=== PATIENT | female | born 1985 ===

== ENCOUNTER 2018-01-19 08:06 | Inpatient (IN) ==
[2018-01-19] MEDS ORDERED: Naloxone Inj 0.4 MG/ML Vial ONE (08:19)
[2018-01-19] MEDS ORDERED: Naloxone Inj 2 MG/2 ML Vial IV.PUSH ONE (08:24)
[2018-01-19 08:38] LABS: Baso % (Auto) 0.2 % (0.0-2.0); Eos # (Auto) 0.1 th/mm3 (0.0-0.4); Eos % (Auto) 0.5 % (0.0-4.0); Hematocrit 38.4 % (35.0-46.0); Hemoglobin 12.7 gm/dL (11.6-15.3); Lymph # (Auto) 2.1 th/mm3 (1.0-4.8); Lymph % (Auto) 10.7 % (9.0-44.0); Mean Corpuscular HGB Conc 33.2 % (32.0-36.0); Mean Corpuscular Hemoglobin 30.7 pg (27.0-34.0); Mean Corpuscular Volume 92.6 fL (80.0-100.0); Mean Platelet Volume 8.3 fL (7.0-11.0); Mono # (Auto) 1.3 th/mm3 (0.0-0.9); Mono % (Auto) 6.6 % (0.0-8.0); Neut # (Auto) 16.2 th/mm3 (1.8-7.7); Platelet Count 276 th/mm3 (150-450); Red Blood Count 4.15 mil/mm3 (4.00-5.30); Red Cell Distribution Width 13.8 % (11.6-17.2); White Blood Count 19.8 th/mm3 (4.0-11.0)
[2018-01-19 08:58] LABS: Anion Gap 9 meq/L (5-15); Aspartate Aminotransferase 69 U/L (15-37); Blood Urea Nitrogen 10 mg/dL (7-18); Carbon Dioxide 26.2 meq/L (21.0-32.0); Chloride 103 meq/L (98-107); Glomerular Filtration Rate 59 mL/min (>89); Glucose,Random 116 mg/dL (74-106); Potassium 3.4 meq/L (3.5-5.1); Sodium 138 meq/L (136-145)
[2018-01-19 09:03] LABS: Alanine Aminotransferase 54 U/L (10-53); Alkaline Phosphatase 63 U/L (45-117); Total Protein 8.6 g/dL (6.4-8.2)
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
--- NOTE | 2018-01-19 09:34 | XR ---
EXAM DATE: 01/19/2018 9:22 AM EDT AGE/SEX: 89 years / Female INDICATIONS: Palpitations. CLINICAL DATA: This is the patient's initial encounter. Patient reports that signs and symptoms have been present for 1 day and indicates a pain score of Nonresponsive. MEDICAL/SURGICAL HISTORY: Non-responsive. Non-responsive. COMPARISON: No prior exams available for comparison. FINDINGS: A single AP view of the chest demonstrates the lungs to be symmetrically aerated without evidence of mass, infiltrate or effusion. The cardiomediastinal contours are unremarkable. Osseous structures a re intact. CONCLUSION: No acute cardiopulmonary disease. Electronically signed by: Nuno Miller MD 01/19/2018 9:33 AM EDT
--- NOTE | 2018-01-19 10:15 | CT ---
EXAM DATE: 01/19/2018 9:54 AM EDT AGE/SEX: 89 years / Female INDICATIONS: Altered mental status CLINICAL DATA: This is the patient's initial encounter. Patient reports that signs and symptoms have been present for 1 day and indicates a pain score of Nonresponsive. MEDICAL/SURGICAL HISTORY: Non-responsive. Non-responsive. RADIATION DOSE: 35.33 CTDI (mGy) COMPARISON: No prior exams available for comparison. TECHNIQUE: CT of the head without contrast. Using automated exposure control and adjustment of the mA and/or kV according to patient size, radiation dose was kept as low as reasonably achievable to ob tain optimal diagnostic quality images. DICOM format image data is available electronically for revi ew and comparison. FINDINGS: Cerebrum: The ventricles are normal. No midline shift, mass lesion, or acute infarction. There is a punctate 5 mm area of high density in the medial right temporal lobe and questionable high density l ayering along the sulci in the right frontal high and mid convexity. No extraaxial fluid collections are seen. Posterior Fossa: The cerebellum and brainstem demonstrate no acute abnormality. The 4th ventricle is midline. The cerebellopontine angle is within normal limits. Extracranial: The visualized sinuses are clear. There is left scalp soft tissue swelling and subcuta neous edema. Skull: The calvaria is intact. No skull fracture. CONCLUSION: 1. Left scalp soft tissue swelling and subcutaneous edema. No skull fracture is identified. 2. 5 mm high density focus in the medial right temporal lobe likely representing a focal area of blo od products, possibly a small hemorrhagic contusion. There are questionable subtle subarachnoid blood products layering along the right frontal sulci. . Electronically signed by: Wayne Zamora MD 01/19/2018 10:14 AM EDT
[2018-01-19] MEDS ORDERED: Piperacil/Tazo 3.375 GM Premix 50 ML IV.SIG ONE (11:31)
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
[2018-01-19] MEDS ORDERED: HYDROmorphone PF Inj 0.5 MG/0.5 ML Syringe IV.PUSH PRN (14:00)
[2018-01-19] MEDS: Sod Chloride 0.9% Inj 1,000 ML IV.CONT SCH (14:57)
[2018-01-19] MEDS: Multivitamin Inj 10 ML, Thiamine Inj 100 MG, Folic Acid Inj 1 MG in Sodium Chlor 0.9% I... IV.SIG SCH (14:58)
[2018-01-19] MEDS: Pantoprazole Inj 40 MG Vial IV.PUSH SCH (14:58)
[2018-01-19 15:49] LABS: Bacteria,Urine Occasional /hpf; Bilirubin,Urine Negative (Negative); Clarity,Urine Hazy (Clear); Color,Urine Yellow (Yellw/Straw); Glucose,Urine (UA) Negative (Negative); Leukocyte Esterase,Urine Trace (Negative); Mucus,Urine Few /lpf (Occasional); Nitrite,Urine Negative (Negative); Specific Gravity,Urine 1.025 (1.002-1.035); Squamous Epithelial Cell,Urine 4 /hpf (0-5)
[2018-01-19 15:52] LABS: Amphetamine Screen,Urine Neg (Neg); Barbiturate Screen,Urine Neg (Neg); Cannabinoid Screen,Urine Pos (Neg); Cocaine Screen,Urine Pos (Neg)
[2018-01-19 15:56] LABS: Opiate Screen,Urine Neg (Neg)
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
--- NOTE | 2018-01-19 17:09 | ECG ---
Date Performed: 01/19/2018 Time Performed: 08:35:32 PTAGE: 89 years EKG: Sinus rhythm NORMAL ECG NO PREVIOUS TRACING DOCTOR: Dewey López Interpretating Date/Time 01/19/2018 17:08:01
[2018-01-19] MEDS: Docusate Sodium 100 MG Capsule PO SCH (20:59)
--- NOTE | 2018-01-19 21:20 | MG ---
cc: Tyler Avila MD ELECTROENCEPHALOGRAM RECORD NUMBER: [id number] DESCRIPTION: Generalized slowing, but appears delta activity has been most suggestive of stage II sleep with mild easy variability reactivity during arousals. Limited driving with photic stimulation. Single lead EKG showing sinus rhythm. INTERPRETATION: Moderate generalized slowing suggestive of stage II sleep. Possible underlying encephalopathy. No epileptic activity. Clinical correlation. Tyler Avila MD MG/rw , 09:04 PM , 09:09 PM
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
[2018-01-20] MEDS: Sod Chloride 0.9% Inj 1,000 ML IV.CONT SCH ×3 (01:00→21:02)
[2018-01-20] MEDS: Chlorhexidine Gluconate 2% 1 Pack (2 Cloths) TOPICAL SCH (04:00)
[2018-01-20] MEDS ORDERED: Chlorhexidine Gluconate 2% 1 Pack (2 Cloths) TOPICAL PRN (04:00)
[2018-01-20 04:43] LABS: Baso # (Auto) 0.1 th/mm3 (0.0-0.2); Baso % (Auto) 0.5 % (0.0-2.0); Eos % (Auto) 0.2 % (0.0-4.0); Hematocrit 34.3 % (35.0-46.0); Hemoglobin 11.7 gm/dL (11.6-15.3); Lymph # (Auto) 2.9 th/mm3 (1.0-4.8); Lymph % (Auto) 20.9 % (9.0-44.0); Mean Corpuscular Hemoglobin 30.8 pg (27.0-34.0); Mean Corpuscular Volume 90.6 fL (80.0-100.0); Mean Platelet Volume 8.2 fL (7.0-11.0); Mono # (Auto) 1.3 th/mm3 (0.0-0.9); Mono % (Auto) 9.4 % (0.0-8.0); Neut # (Auto) 9.4 th/mm3 (1.8-7.7); Platelet Count 256 th/mm3 (150-450); Red Blood Count 3.79 mil/mm3 (4.00-5.30); Red Cell Distribution Width 13.6 % (11.6-17.2); White Blood Count 13.7 th/mm3 (4.0-11.0)
[2018-01-20 05:07] LABS: Alanine Aminotransferase 37 U/L (10-53); Albumin 3.2 g/dL (3.4-5.0); Anion Gap 6 meq/L (5-15); Aspartate Aminotransferase 45 U/L (15-37); Blood Urea Nitrogen 6 mg/dL (7-18); Calcium 8.3 mg/dL (8.5-10.1); Carbon Dioxide 27.4 meq/L (21.0-32.0); Chloride 109 meq/L (98-107); Glomerular Filtration Rate 61 mL/min (>89); Glucose,Random 93 mg/dL (74-106); Potassium 3.6 meq/L (3.5-5.1); Sodium 142 meq/L (136-145)
[2018-01-20 05:11] LABS: Alkaline Phosphatase 51 U/L (45-117); Total Protein 7.5 g/dL (6.4-8.2)
[2018-01-20] MEDS: Docusate Sodium 100 MG Capsule PO SCH ×2 (09:22→21:02)
--- NOTE | 2018-01-20 10:13 | P.PNNS ---
Subjective Interval history: Pt opens eyes and reportedly was talking to speech therapy but not verbalizing for me. She does answer questions by nodding head appropriately. She denies headaches, nausea, vomiting, numbness. She has a very flat affect and is somnolent. <Lance Gustafson - Last Filed: 01/20/18 10:03> Physical Exam Vital signs: Vital Signs 01/19/18 10:21 01/19/18 11:00 01/19/18 12:00 Temperature Pulse Rate 88 86 94 H Respiratory Rate 18 18 18 Blood Pressure 122/73 119/73 119/71 Pulse Oximetry 100 99 01/19/18 14:00 01/19/18 16:00 01/19/18 18:00 Temperature 100.5 F H Pulse Rate 90 86 88 Respiratory Rate 18 25 H Blood Pressure 124/71 114/69 Pulse Oximetry 100 01/19/18 20:00 01/19/18 22:00 01/19/18 23:33 Temperature 99.8 F H Pulse Rate 79 81 Respiratory Rate 20 Blood Pressure 122/70 Pulse Oximetry 100 100 01/20/18 00:00 01/20/18 02:00 01/20/18 04:00 Temperature 99.8 F H 98.2 F Pulse Rate 79 75 75 Respiratory Rate 20 18 Blood Pressure 116/76 120/80 Pulse Oximetry 100 100 01/20/18 06:00 01/20/18 07:44 01/20/18 08:00 Temperature 98.1 F Pulse Rate 70 70 Respiratory Rate 18 Blood Pressure 114/79 Pulse Oximetry 99 100 Intake & Output 01/19/18 01/20/18 01/20/18 18:59 06:59 18:59 Intake Total 50 / 50 1511.2 / 1511.2 0 / 0 Balance 50 / 50 1511.2 / 1511.2 0 / 0 Weight 54.8 kg 52.1 kg Intake: IV 50 / 50 1511.2 / 1511.2 NS Inj 1,000 ML @ 100 mls/hr IV 1000 / 1000 .CONT .Q10H [facility] Rx#:[id number] MVI-12 Inj 10 ML Thiamine Inj 511.2 / 511.2 100 MG Folvite Inj 1 MG In NS Inj 500 ML @ 125 mls/hr IV.SIG Q24H [facility] Rx#:[id number] Zosyn 3.375 GM Premix 50 ML @ 50 / 50 100 mls/hr IV.SIG ONCE ONE Rx#: [id number] Oral 0 / 0 0 / 0 Other: # Voids 1 4 # Bowel Movements 0 0 Weight On Admission 54.8 kg - Constitutional no acute distress, average body habitus, somnolent Comments: Somewhat cooperative for exam. She is not verbalizing although reportedly was talking to speech therapy earlier. Otherwise follows commands and nods head to questions. - Routine HEENT Exam Head: Present: normocephalic, atraumatic Eye: Present: PERRL (Pupils 3mm bialterally reactive bilaterally.). Absent: conjunctival icterus ENT: Present: oropharynx clear. Absent: mucous membranes dry - Routine Neck Exam Present: trachea midline - Routine Respiratory Exam Present: CTA bilaterally. Absent: patient mechanically ventilated, respiratory distress, rhonchi, wheezes - Routine Cardiovascular Exam Present: RRR, S1, S2. Absent: murmur - Routine Abdominal Exam Present: soft, normoactive bowel sounds. Absent: tenderness, distended, firm - Routine Skin Exam Absent: cyanosis, erythema - Routine Neurological Exam Present: altered mental status, moving all extremities. Absent: alert ( somnolent.), motor deficit, abnormal gait (RN states ambulates to bathroom with assistance.), normal speech (Pt not verbalizing for me but reportely was talking to speech therapy.) - Detailed Neurological Exam: Coma Scale Eye Opening: Spontaneous Verbal Response: Words (Reportedly taling to speech therapy.) Motor Response: Obey commands Manjinder Coma Scale Total: 13 - Routine Psychiatric Exam Present: unable to assess (Not verbalizing for me but reportedly is able to do so.) <Lance Gustafson - Last Filed: 01/20/18 10:03> Vital signs: Vital Signs 01/19/18 14:00 01/19/18 16:00 01/19/18 18:00 Temperature 100.5 F H Pulse Rate 90 86 88 Respiratory Rate 18 25 H Blood Pressure 124/71 114/69 Pulse Oximetry 100 01/19/18 20:00 01/19/18 22:00 01/19/18 23:33 Temperature 99.8 F H Pulse Rate 79 81 Respiratory Rate 20 Blood Pressure 122/70 Pulse Oximetry 100 100 01/20/18 00:00 01/20/18 02:00 01/20/18 04:00 Temperature 99.8 F H 98.2 F Pulse Rate 79 75 75 Respiratory Rate 20 18 Blood Pressure 116/76 120/80 Pulse Oximetry 100 100 01/20/18 06:00 01/20/18 07:44 01/20/18 08:00 Temperature 98.1 F Pulse Rate 70 70 Respiratory Rate 18 Blood Pressure 114/79 Pulse Oximetry 99 100 01/20/18 10:00 01/20/18 12:00 01/20/18 12:37 Temperature 99.2 F Pulse Rate 69 70 69 Respiratory Rate 18 Blood Pressure 113/76 Pulse Oximetry 100 Intake & Output 01/19/18 01/20/18 01/20/18 18:59 06:59 18:59 Intake Total 50 / 50 1511.2 / 1511.2 0 / 0 Balance 50 / 50 1511.2 / 1511.2 0 / 0 Weight 54.8 kg 52.1 kg Intake: IV 50 / 50 1511.2 / 1511.2 NS Inj 1,000 ML @ 100 mls/hr IV 1000 / 1000 .CONT .Q10H [facility] Rx#:[id number] MVI-12 Inj 10 ML Thiamine Inj 511.2 / 511.2 100 MG Folvite Inj 1 MG In NS Inj 500 ML @ 125 mls/hr IV.SIG Q24H [facility] Rx#:[id number] Zosyn 3.375 GM Premix 50 ML @ 50 / 50 100 mls/hr IV.SIG ONCE ONE Rx#: [id number] Oral 0 / 0 0 / 0 Other: # Voids 1 4 # Bowel Movements 0 0 Weight On Admission 54.8 kg <Virgilio Caruso - Last Filed: 01/20/18 12:51> Assessment and Plan - Assessment (1) Altered mental status Code(s): R41.82 - Altered mental status, unspecified Status: Acute (2) Subarachnoid hemorrhage Code(s): I60.9 - Nontraumatic subarachnoid hemorrhage, unspecified Status: Acute (3) Sepsis Code(s): A41.9 - Sepsis, unspecified organism Status: Acute - Plan CT head: -left frontal/temporal scalp hematoma without underlying skull fracture -Small areas of right frontal tSAH -5 mm small nodule of hyperintensity within the right caudal cerebral peduncle ( differential includes small contusion from JUSTINE, incidental finding) A/P: [age]ish yo F found down with small areas of traumatic SAH and possible punctate hemorrhage within the right caudal cerebral peduncle. -No surgical intervention indicated. Continue with Neuro checks. -Patients current state not explained by current CT head findings, recommend further medical workup of AMS including infectious (WBC 20), utox, etc. -Recommend stat EEG to rule out seizures -Recommend MR brain to further evaluate right peduncle hyperdensity (including SWI to evaluate for hematoma) <Lance Gustafson - Last Filed: 01/20/18 10:03> - Attending Attestation The exam, history, and the medical decision-making described in the above note were completed with the assistance of the mid-level provider. I reviewed and agree with the findings presented. I attest that I had a [id number] encounter with the patient on the same day, and personally performed and documented my assessment and findings in the medical record. <Virgilio Caruso - Last Filed: 01/20/18 12:51>
--- NOTE | 2018-01-20 11:27 | P.NPEVAL ---
Patient History - Record/History Review Reason for Referral: The patient is a 89 year old unknown handed female who was dropped off at the ED by a stranger who found the patient lying on the ground with mental status deterioration. Head CT showed possible small area of hemorrhagic contusion. Her tox screen was significant for cocaine and THC. She is referred for baseline neurobehavioral status examination per trauma protocol to assess cognitive, behavioral and emotional aspects of the injury and to provide treatment recommendations. PMFSH - History History Provided By: Patient - Tobacco History Second Hand Smoke Exposure: (pt will not answer) Smoking Status: Refused to answer - Alcohol History How Often Do You Have a Drink Containing Alcohol: Unable to Obtain - Substance Use History Substance History: Active Abuse - Travel History Recent Travel in the [place] Within the Last 8 Weeks: No Recent Travel Out of the Country Within the Last 8 Weeks: No - Immunization History Tetanus Immunization: Unable to Assess Hx Influenza Vaccine This Season: Unable to Assess Medications Active Medications Bacitracin (Baciguent Oint) 1 applicatio TOPICAL BID [facility] Last Admin: 01/20/18 09:27 Dose: Not Given Chlorhexidine Gluconate (Chlorhexidine 2% Cloth) 3 pack TOPICAL DAILY@0400 [facility] Stop: 01/25/18 03:59 Last Admin: 01/20/18 04:00 Dose: 3 pack Chlorhexidine Gluconate (Chlorhexidine 2% Cloth) 3 pack TOPICAL DAILY@0400 PRN PRN Reason: Extra cloth needed Stop: 01/25/18 03:59 Docusate Sodium (Colace) 100 mg PO BID [facility] Last Admin: 01/20/18 09:22 Dose: Not Given Enalaprilat (Vasotec Inj) 1.25 mg IV.PUSH Q8H PRN PRN Reason: Blood pressure 180/95 Sodium Chloride (Ns Inj) 1,000 mls @ 100 mls/hr IV.CONT .Q10H [facility] Last Admin: 01/20/18 01:00 Dose: 100 mls/hr Multivitamins 10 ml/ Thiamine HCl 100 mg/ Folic Acid 1 mg/Sodium Chloride 511.2 mls @ 125 mls/hr IV.SIG Q24H [facility] Stop: 01/21/18 19:06 Last Infusion: 01/19/18 19:04 Dose: Infused Acetaminophen (Ofirmev Inj) 1,000 mg in 100 mls @ 400 mls/hr IV.SIG Q6H PRN PRN Reason: PAIN SCALE 1 TO 10 Ondansetron HCl (Zofran Inj) 4 mg IV.PUSH Q6H PRN PRN Reason: NAUSEA OR VOMITING Pantoprazole Sodium (Protonix Inj) 40 mg IV.PUSH Q24H [facility] Last Admin: 01/19/18 14:58 Dose: 40 mg Sodium Chloride (Ns Flush) 2 ml IV.FLUSH PRN PRN PRN Reason: FLUSH AFTER USING IV ACCESS Last Admin: 01/19/18 08:29 Dose: 2 ml Sodium Chloride (Ns Flush) 2 ml IV.FLUSH UNSCH PRN PRN Reason: FLUSH AFTER USING IV ACCESS Mental Status Assessment - Mental Status Orientation: oriented to: Self, disoriented to: Place, Time, Situation Mental Status: Variable: Language/interactions, Impaired: Thought processing, Attention, Learning/memory, Problem-solving Adjustment/Coping Assessment - Adjustment/Coping Adjustment/Coping: Severe: Awareness, Insight - Observation In terms of emotional functioning, the patient demonstrated challenges. This patient demonstrated no signs of agitation, impulsivity or disinhibition, although she was quite lethargic. There was no evidence of depression or anxiety. Thought content appeared free from suicidal, homicidal or paranoid ideation, and thought processes were bradyphrenic. The patients mood was apathetic, and her affect was flat. The patient appears to possess minimal insight and awareness into their situation and within the limits of this brief evaluation, poor judgment. Behavior - Behavior Treatment Engagement: Minimal - Observation Behaviorally, the patient demonstrated no signs of agitation, impulsivity or disinhibition. However, she is mildly agitated with ABS scores recently. There was no remarkable evidence of a formal thought disorder or psychosis. - Goals LTG Status: Deferred STG Status: Deferred - Team Members Team Members: Neuropsychologist Diagnosis/Discharge Plan - Diagnosis (1) Altered mental status Status: Acute Impression: This patient is a 31ish year old woman who was found down. Her CT findings are minimal and inconsistent with her clinical presentation, possibly better explained by polysubstance use/dependence and withdrawal. I asked for my psychiatry colleagues to provide an opinion concerning clinical presentation and course of treatment. Disinhibition Score: 21.00 Aggression Score: 21.00 Lability Score: 14.00 Agitated Behavior Total Score: 19 Maximizing Acute Care Outcome: It is recommended that the patient be monitored for emergent behavioral impulsivity as the medical condition evolves. This patients neuropathological challenges may limit rehabilitation potential going forward, and these challenges will require specialized therapeutic skills to maximize outcome. At this point in the recovery process, the patient does not have cognitive capacity as the patient is unable to understand a situation and its likely consequences, nor is the patient able to manipulate information rationally. Cognitive capacity will be assessed throughout the recovery process. - Discharge Planning Anticipated Problems: Ongoing areas of concern will include behavioral impulsivity, lack of insight and judgment, which is expected to improve with time and treatment. Treatment Plan: This clinician will continue to follow with you throughout the course of this patients rehabilitation treatment, and I will be available to meet with the patients family/support system to facilitate their understanding and the ongoing care of their family member. The goals of neuropsychological intervention shall be both educational and supportive to the family/support system as is deemed clinically appropriate. Thank you for the opportunity to assist in this patients care. Franklin Mcarthur, Ph.D., ABPP Board Certified in Clinical Neuropsychology [place] [employer] [place] Licensed Psychologist #[id number] (1) Altered mental status Qualifiers: Altered mental status type: transient alteration of awareness Qualified Code( s): R40.4 - Transient alteration of awareness
[2018-01-20] MEDS: Pantoprazole Inj 40 MG Vial IV.PUSH SCH (15:25)
--- NOTE | 2018-01-20 15:29 | P.CONPSY ---
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 The patient was noted denae be outside a convenient store and was brought in to the emergency department due to immobility, found down, left-sided scalp contusion, not following commands. The patient is combative, occasionally refusing to participate with any answering of questions or with the physical exam. The patient is noted to be moving all extremities. She is noted to be hemodynamically stable. She did have a CT scan showing small subarachnoid hemorrhage and she is noted to have positive cocaine. WBC 19.8, hemoglobin 12.7 , hematocrit 38.4, platelets 276. Sodium 138, potassium 3.4, chloride 103, BUN 10, creatinine 0.8, AST 69, ALT 54, albumin 4. Urine: Positive THC, positive cocaine. CT reviewed showing left scalp soft tissue swelling, 5 mm high density focus medial right temporal lobe foci of blood, concerning for small hemorrhagic contusion, questionable subarachnoid along the right. Consulted to psychiatry to address behavioral changes. Collateral information is available at this moment. Chart was reviewed. On my psychiatric evaluation I find a patient that is restrained in 4 points, very lethargic, no engaging in a conversation unable to provide any significant information for the psychiatric assessment at the moment. She has been witnessed to be talking before, but at this moment the patient is not answering questions PMFSH - History History Provided By: Patient - Tobacco History Second Hand Smoke Exposure: (pt will not answer) Smoking Status: Refused to answer - Alcohol History How Often Do You Have a Drink Containing Alcohol: Unable to Obtain - Substance Use History Substance History: Active Abuse - Travel History Recent Travel in the [place] Within the Last 8 Weeks: No Recent Travel Out of the Country Within the Last 8 Weeks: No - Immunization History Tetanus Immunization: Unable to Assess Hx Influenza Vaccine This Season: Unable to Assess Medications and Allergies Active Medications: Active Medications Bacitracin (Baciguent Oint) 1 applicatio TOPICAL BID [facility] Last Admin: 01/20/18 09:27 Dose: Not Given Chlorhexidine Gluconate (Chlorhexidine 2% Cloth) 3 pack TOPICAL DAILY@0400 [facility] Stop: 01/25/18 03:59 Last Admin: 01/20/18 04:00 Dose: 3 pack Chlorhexidine Gluconate (Chlorhexidine 2% Cloth) 3 pack TOPICAL DAILY@0400 PRN PRN Reason: Extra cloth needed Stop: 01/25/18 03:59 Docusate Sodium (Colace) 100 mg PO BID [facility] Last Admin: 01/20/18 09:22 Dose: Not Given Enalaprilat (Vasotec Inj) 1.25 mg IV.PUSH Q8H PRN PRN Reason: Blood pressure 180/95 Sodium Chloride (Ns Inj) 1,000 mls @ 100 mls/hr IV.CONT .Q10H [facility] Last Admin: 01/20/18 15:18 Dose: 100 mls/hr Multivitamins 10 ml/ Thiamine HCl 100 mg/ Folic Acid 1 mg/Sodium Chloride 511.2 mls @ 125 mls/hr IV.SIG Q24H [facility] Stop: 01/21/18 19:06 Last Infusion: 01/19/18 19:04 Dose: Infused Acetaminophen (Ofirmev Inj) 1,000 mg in 100 mls @ 400 mls/hr IV.SIG Q6H PRN PRN Reason: PAIN SCALE 1 TO 10 Ondansetron HCl (Zofran Inj) 4 mg IV.PUSH Q6H PRN PRN Reason: NAUSEA OR VOMITING Pantoprazole Sodium (Protonix Inj) 40 mg IV.PUSH Q24H [facility] Last Admin: 01/19/18 14:58 Dose: 40 mg Sodium Chloride (Ns Flush) 2 ml IV.FLUSH PRN PRN PRN Reason: FLUSH AFTER USING IV ACCESS Last Admin: 01/19/18 08:29 Dose: 2 ml Sodium Chloride (Ns Flush) 2 ml IV.FLUSH UNSCH PRN PRN Reason: FLUSH AFTER USING IV ACCESS Allergies Allergy/AdvReac Type Severity Reaction Status Date / Time No Known Allergies Allergy Unverified 01/19/18 08:13 Home Medications Medication Instructions Recorded Confirmed Type Unable to Obtain Home Meds 01/19/18 01/19/18 History Exam Vital signs: Vital Signs 01/19/18 16:00 01/19/18 18:00 01/19/18 20:00 Temperature 100.5 F H 99.8 F H Pulse Rate 86 88 79 Respiratory Rate 25 H 20 Blood Pressure 114/69 122/70 Pulse Oximetry 100 100 01/19/18 22:00 01/19/18 23:33 01/20/18 00:00 Temperature 99.8 F H Pulse Rate 81 79 Respiratory Rate 20 Blood Pressure 116/76 Pulse Oximetry 100 100 01/20/18 02:00 01/20/18 04:00 01/20/18 06:00 Temperature 98.2 F Pulse Rate 75 75 70 Respiratory Rate 18 Blood Pressure 120/80 Pulse Oximetry 100 01/20/18 07:44 01/20/18 08:00 01/20/18 10:00 Temperature 98.1 F Pulse Rate 70 69 Respiratory Rate 18 Blood Pressure 114/79 Pulse Oximetry 99 100 01/20/18 12:00 01/20/18 12:37 Temperature 99.2 F Pulse Rate 70 69 Respiratory Rate 18 Blood Pressure 113/76 Pulse Oximetry 100 Intake & Output 01/19/18 01/20/18 01/20/18 18:59 06:59 18:59 Intake Total 50 / 50 1511.2 / 1511.2 1000 / 1000 Balance 50 / 50 1511.2 / 1511.2 1000 / 1000 Weight 54.8 kg 52.1 kg Intake: IV 50 / 50 1511.2 / 1511.2 1000 / 1000 NS Inj 1,000 ML @ 100 mls/hr IV 1000 / 1000 1000 / 1000 .CONT .Q10H [facility] Rx#:[id number] MVI-12 Inj 10 ML Thiamine Inj 511.2 / 511.2 100 MG Folvite Inj 1 MG In NS Inj 500 ML @ 125 mls/hr IV.SIG Q24H [facility] Rx#:[id number] Zosyn 3.375 GM Premix 50 ML @ 50 / 50 100 mls/hr IV.SIG ONCE ONE Rx#: [id number] Oral 0 / 0 0 / 0 Other: # Voids 1 4 # Bowel Movements 0 0 Weight On Admission 54.8 kg Mental Status Examination Mental Status Exam Remarks: Limited due to lack of cooperation, the patient is not answering questions. Assessment and Plan - Plan Plan: Estimated LOS: [] days On psychiatric evaluation the patient is lethargic, no answering questions, no engageable in a conversation, unable to participate in the psychiatric assessment. She has been allegedly agitated and aggressive in the medical floor. She is restrained in 4 points. Patient was positive for cocaine and cannabis. CT reviewed showing left scalp soft tissue swelling, 5 mm high density focus medial right temporal lobe foci of blood, concerning for small hemorrhagic contusion, questionable subarachnoid along the right. Current presentation could be related with AMS post TBI, but potential underlying psychiatric condition also needs to be explored. No psychiatric admission is indicated. Haldol 5 mg IM/IV every 8 hours as needed aggressive behavior and agitation can be ordered. A low dose of Seroquel 25/50 mg twice daily can also be considered for behavioral dysregulation. QTc is 408. I will follow-up Justification for Continued Inpatient Stay: No admission indicated at the moment.
--- NOTE | 2018-01-20 16:46 | MR ---
EXAM DATE: 01/20/2018 4:35 PM EDT AGE/SEX: 32 years / Female INDICATIONS: . Lethargic after trauma. CLINICAL DATA: This is the patient's subsequent encounter. Patient reports that signs and symptoms h ave been present for 1 day and indicates a pain score of 0/10. MEDICAL/SURGICAL HISTORY: None. None. COMPARISON: No prior exams available for comparison. TECHNIQUE: Multiplanar, multisequence examination of the brain was performed without contrast. FINDINGS: There are multiple areas of punctate bright signal on diffusion imaging corresponding to restricted d iffusion capacity in a setting of trauma most likely shear axonal injury. There are also punctate are as of involvement involving the right basal ganglia and anterior portion of the midbrain and jonatan. Th ere are additional areas of bright signal on the FLAIR sequence in the frontal lobes bilaterally high ly suggestive of slight subarachnoid hemorrhage with partial involvement of the right parietal lobe a nd posterior temporal lobes. Additional areas are also seen involving the occipital lobes bilateral c erebellar hemispheres some of these areas could be punctate intraparenchymal contusions as well. Ther e is no mass effect. No extra-axial fluid collections are seen. Scalp swelling and hematoma is again seen. CONCLUSION: 1. Multiple areas of subarachnoid hemorrhage and punctate intraparenchymal contusions bilaterally an d possibility of additional shear axonal injury should also be entertained. 2. No extra-axial fluid collections or mass effect. Electronically signed by: Karthik Cortes MD 01/20/2018 4:45 PM EDT
[2018-01-20] MEDS: Multivitamin Inj 10 ML, Thiamine Inj 100 MG, Folic Acid Inj 1 MG in Sodium Chlor 0.9% I... IV.SIG SCH (17:00)
--- NOTE | 2018-01-20 18:35 | P.PNCC ---
Subjective Brief History: 32-year-old female found on the ground outside a store with a large bump on her head and laceration. She was brought into the emergency room as regular evaluation and diagnostic workup found to have intracranial hemorrhage for which she is admitted to ICU. On arrival patient was combative screaming and yelling but not answering any questions clearly intoxicated or with altered mental status this could be attributed to either combination of injury and outside drugs or alcohol Patient underwent full diagnostic workup and is found to have intracranial hemorrhage on the CAT scan and this is followed with MRI of the brain Subarachnoid and intraparenchymal hemorrhage of both frontal lobes and both temporal lobes Punctate intraparenchymal hemorrhage of basal ganglia and the interior jonatan Diffuse shear axonal injuries 24 Hour Review/Hospital Course: 01/20/2018 Patient has been neurologically same since the arrival She is arousable and when awake somewhat somnolent answering simple questions appropriately and then falling asleep Able to eat her lunch today by herself Refuses to answer any questions other than her name and the adverse and does not remember any events surrounding her injury Patient was positive for substances [place] [facility] Coma Scale around 11-12 and when patient is fully awake about 13-14 Motorically fully intact no lateralization Hemodynamically patient is stable Bilateral good breath sounds good pulmonary function and patient might have aspirated and seen both within know that yet If any pulmonary infiltrates occur it will be next 24-48 hours Abdomen soft no signs of trauma Extremities with good proximal distal pulses no signs of trauma Renal function preserved As above noted MRI reveals full extent of her injuries which does not include only frontal and parietal areas but also the basal ganglia and jonatan Objective Vital Signs / I&O: Vital Signs 01/19/18 20:00 01/19/18 22:00 01/19/18 23:33 Temperature 99.8 F H Pulse Rate 79 81 Respiratory Rate 20 Blood Pressure 122/70 Pulse Oximetry 100 100 01/20/18 00:00 01/20/18 02:00 01/20/18 04:00 Temperature 99.8 F H 98.2 F Pulse Rate 79 75 75 Respiratory Rate 20 18 Blood Pressure 116/76 120/80 Pulse Oximetry 100 100 01/20/18 06:00 01/20/18 07:44 01/20/18 08:00 Temperature 98.1 F Pulse Rate 70 70 Respiratory Rate 18 Blood Pressure 114/79 Pulse Oximetry 99 100 01/20/18 10:00 01/20/18 12:00 01/20/18 12:37 Temperature 99.2 F Pulse Rate 69 70 69 Respiratory Rate 18 Blood Pressure 113/76 Pulse Oximetry 100 Intake & Output 01/19/18 01/20/18 01/20/18 18:59 06:59 18:59 Intake Total 50 / 50 1511.2 / 1511.2 1000 / 1000 Balance 50 / 50 1511.2 / 1511.2 1000 / 1000 Weight 54.8 kg 52.1 kg Intake: IV 50 / 50 1511.2 / 1511.2 1000 / 1000 NS Inj 1,000 ML @ 100 mls/hr IV 1000 / 1000 1000 / 1000 .CONT .Q10H K[facility]IE Rx#:[id number] MVI-12 Inj 10 ML Thiamine Inj 511.2 / 511.2 100 MG Folvite Inj 1 MG In NS Inj 500 ML @ 125 mls/hr IV.SIG Q24H KALLIE Rx#:[id number] Zosyn 3.375 GM Premix 50 ML @ 50 / 50 100 mls/hr IV.SIG ONCE ONE Rx#: [id number] Oral 0 / 0 0 / 0 Other: # Voids 1 4 # Bowel Movements 0 0 Weight On Admission 54.8 kg Result Diagrams: 01/20/18 04:24 01/20/18 04:24 Imaging: Impressions Head MRI 01/20/18 00:00 CONCLUSION: 1. Multiple areas of subarachnoid hemorrhage and punctate intraparenchymal contusions bilaterally and possibility of additional shear axonal injury should also be entertained. 2. No extra-axial fluid collections or mass effect. Disinhibition Score: 21.00 Aggression Score: 21.00 Lability Score: 14.00 Agitated Behavior Total Score: 19 - Exam TEAM LEAD: Patient has been neurologically same since the arrival She is arousable and when awake somewhat somnolent answering simple questions appropriately and then falling asleep Able to eat her lunch today by herself Refuses to answer any questions other than her name and the adverse and does not remember any events surrounding her injury Patient was positive for substances [facility] Coma Scale around 11-12 and when patient is fully awake about 13-14 Motorically fully intact no lateralization As above noted MRI reveals full extent of her injuries which does not include only frontal and parietal areas but also the basal ganglia and jonatan Hemodynamic/Cardiac: Hemodynamically patient is stable Pulmonary/Respiratory: Bilateral good breath sounds good pulmonary function and patient might have aspirated and seen both within know that yet If any pulmonary infiltrates occur it will be next 24-48 hours Abdomen/GI Nutrition: Abdomen soft no signs of trauma Renal/I&O: Extremities with good proximal distal pulses no signs of trauma Renal function preserved Assessment and Plan Attestation: Critical care time 32 minutes
[2018-01-20] MEDS ORDERED: Morphine Sulfate Inj 2 MG/ML Vial ONE (22:07)
[2018-01-21] MEDS: Chlorhexidine Gluconate 2% 1 Pack (2 Cloths) TOPICAL SCH (05:00)
[2018-01-21] MEDS: Sod Chloride 0.9% Inj 1,000 ML IV.CONT SCH (05:01)
[2018-01-21 05:37] LABS: Baso # (Auto) 0.1 th/mm3 (0.0-0.2); Baso % (Auto) 0.4 % (0.0-2.0); Eos # (Auto) 0.1 th/mm3 (0.0-0.4); Eos % (Auto) 0.9 % (0.0-4.0); Hematocrit 35.7 % (35.0-46.0); Hemoglobin 11.8 gm/dL (11.6-15.3); Lymph # (Auto) 3.6 th/mm3 (1.0-4.8); Lymph % (Auto) 29.9 % (9.0-44.0); Mean Corpuscular HGB Conc 33.2 % (32.0-36.0); Mean Corpuscular Hemoglobin 30.5 pg (27.0-34.0); Mean Platelet Volume 8.7 fL (7.0-11.0); Mono # (Auto) 0.9 th/mm3 (0.0-0.9); Mono % (Auto) 7.7 % (0.0-8.0); Neut # (Auto) 7.4 th/mm3 (1.8-7.7); Neut % (Auto) 61.1 % (16.0-70.0); Platelet Count 261 th/mm3 (150-450); Red Blood Count 3.88 mil/mm3 (4.00-5.30); Red Cell Distribution Width 13.8 % (11.6-17.2); White Blood Count 12.1 th/mm3 (4.0-11.0)
[2018-01-21 05:59] LABS: Anion Gap 10 meq/L (5-15); Blood Urea Nitrogen 8 mg/dL (7-18); Calcium 8.5 mg/dL (8.5-10.1); Carbon Dioxide 24.2 meq/L (21.0-32.0); Chloride 108 meq/L (98-107); Glomerular Filtration Rate Greater Than 89 mL/min (>89); Glucose,Random 85 mg/dL (74-106); Potassium 3.6 meq/L (3.5-5.1); Sodium 142 meq/L (136-145)
[2018-01-21] MEDS: Docusate Sodium 100 MG Capsule PO SCH (08:14)
--- NOTE | 2018-01-21 08:14 | P.PNNPSY ---
- Behavior Intact: Impulsive/agitated - Psychosocial Severe: Psychosocial, Family/other adjustment, Realistic expectation - Progress Notes/Response to Treatment Contents of Sessions: Adjustment, Level of consciousness Time with Patient: 30 minutes Premorbid Psychological Status: Premorbid Cognitive, Emotional and Behavioral Status: Unstable. The patient has unknown years of education and an unknown work history prior to this injury. The patient has unknown psychiatric difficulties, as described above. Substance abuse history includes THC and cocaine. Behavioral Reactions of Patient and Family/Support System: Unstable. The patients family is experiencing ongoing issues of adjustment given the nature of the injury, and this aspect of recovery will require ongoing monitoring. Emotional/Behavioral Status of Patient and Family/Support System: Unstable. Pertinent issues, if appropriate to this patients clinical care, are described in detail above. Maximizing Acute Care Outcome: It is recommended that the patient be monitored for emergent behavioral impulsivity as the medical condition evolves. This patients neuropathological challenges may limit rehabilitation potential going forward, and these challenges will require specialized therapeutic skills to maximize outcome. At this point in the recovery process, the patient does not have cognitive capacity as the patient is unable to understand a situation and its likely consequences, nor is the patient able to manipulate information rationally. Cognitive capacity will be assessed throughout the recovery process. Anticipated Problems: Ongoing areas of concern will include behavioral impulsivity, lack of insight and judgment, which is expected to improve with time and treatment. Treatment Plan: This clinician will continue to follow with you throughout the course of this patients rehabilitation treatment, and I will be available to meet with the patients family/support system to facilitate their understanding and the ongoing care of their family member. The goals of neuropsychological intervention shall be both educational and supportive to the family/support system as is deemed clinically appropriate. [place] COG Scale: Level V Disinhibition Score: 17.50 Aggression Score: 14.00 Lability Score: 14.00 Agitated Behavior Total Score: 16 Impression: This patient is a 31ish year old woman who was found down. Her CT findings are minimal and inconsistent with her clinical presentation, possibly better explained by polysubstance use/dependence and withdrawal. I asked for my psychiatry colleagues to provide an opinion concerning clinical presentation and course of treatment. Progress Note Narrative: PTD 2. The patient has not been significantly agitated/restless overnight, although remains in restraints. Psychiatry saw patient yesterday, and very appreciative of Dr. Corona's input. Recommended medications if agitation presents, including Haldol 5 mg q8H or Seroquel 25 or 50 BID., and trauma team started Seroquel 50 TID given presentation, with PRN Haldol. This patient is Rancho V, possibly higher, although she has not been entirely cooperative. I was asked to return to see patient later in the morning, and she was demanding and wanting to leave, becoming increasingly agitated, having pulled her IV. The patient's mother is being contacted to accept patient. The patient continues to show diminished insight, awareness and judgment. Follow-up brain MRI showed "Multiple areas of subarachnoid hemorrhage and punctate intraparenchymal contusions bilaterally and possibility of additional shear axonal injury should also be entertained." I will follow. - Diagnosis (1) Altered mental status Status: Acute (1) Altered mental status Qualifiers: Altered mental status type: transient alteration of awareness Qualified Code( s): R40.4 - Transient alteration of awareness
[2018-01-21] MEDS ORDERED: Haloperidol Inj 5 MG/ML Ampul IV.PUSH PRN (10:20)
[2018-01-21] MEDS ORDERED: QUEtiapine 25 MG Tablet PO SCH (10:30)
--- NOTE | 2018-01-21 12:19 | P.PNCC ---
Subjective Brief History: 32-year-old female found on the ground outside a store with a large bump on her head and laceration. She was brought into the emergency room as regular evaluation and diagnostic workup found to have intracranial hemorrhage for which she is admitted to ICU. On arrival patient was combative screaming and yelling but not answering any questions clearly intoxicated or with altered mental status this could be attributed to either combination of injury and outside drugs or alcohol Patient underwent full diagnostic workup and is found to have intracranial hemorrhage on the CAT scan and this is followed with MRI of the brain Subarachnoid and intraparenchymal hemorrhage of both frontal lobes and both temporal lobes Punctate intraparenchymal hemorrhage of basal ganglia and the interior jonatan Diffuse shear axonal injuries 24 Hour Review/Hospital Course: 01/20/2018 Patient has been neurologically same since the arrival She is arousable and when awake somewhat somnolent answering simple questions appropriately and then falling asleep Able to eat her lunch today by herself Refuses to answer any questions other than her name and the adverse and does not remember any events surrounding her injury Patient was positive for substances Manjinder Coma Scale around 11-12 and when patient is fully awake about 13-14 Motorically fully intact no lateralization Hemodynamically patient is stable Bilateral good breath sounds good pulmonary function and patient might have aspirated and seen both within know that yet If any pulmonary infiltrates occur it will be next 24-48 hours Abdomen soft no signs of trauma Extremities with good proximal distal pulses no signs of trauma Renal function preserved As above noted MRI reveals full extent of her injuries which does not include only frontal and parietal areas but also the basal ganglia and jonatan 01/21/2018 Patient is awake and alert oriented 3 Motorically fully intact MRI shows fairly extensive diffuse injuries throughout the brain mainly in frontal and temporoparietal areas but also some of the base of the brain in the form of her shear injury. Patient extremely belligerent to the staff cussing and threatening Hemodynamically stable Bilateral good breath sounds good pulmonary function Out of bed regular diet Patient awaiting floor bed for the last 24 hours Objective Vital Signs / I&O: Vital Signs 01/20/18 12:37 01/20/18 16:00 01/20/18 16:37 Temperature 97.4 F L Pulse Rate 69 66 80 Respiratory Rate 19 Blood Pressure 106/59 L Pulse Oximetry 100 01/20/18 20:00 01/20/18 20:01 01/21/18 00:00 Temperature 99.6 F 98.8 F Pulse Rate 97 H 69 Respiratory Rate 12 23 Blood Pressure 111/73 111/73 Pulse Oximetry 100 100 100 01/21/18 04:00 01/21/18 07:32 01/21/18 08:00 Temperature 98.8 F 98.3 F Pulse Rate 73 69 Respiratory Rate 18 19 Blood Pressure 106/60 106/73 Pulse Oximetry 100 99 100 01/21/18 12:00 Temperature 97.7 F Pulse Rate 75 Respiratory Rate 22 Blood Pressure 110/67 Pulse Oximetry 100 Intake & Output 01/20/18 01/21/18 01/21/18 18:59 06:59 18:59 Intake Total 1240 / 1240 511.2 / 511.2 Balance 1240 / 1240 511.2 / 511.2 Weight 54.7 kg Intake: IV 1000 / 1000 511.2 / 511.2 NS Inj 1,000 ML @ 100 mls/hr IV 1000 / 1000 .CONT .Q10H K[facility] Rx#:[id number] MVI-12 Inj 10 ML Thiamine Inj 511.2 / 511.2 100 MG Folvite Inj 1 MG In NS Inj 500 ML @ 125 mls/hr IV.SIG Q24H K[facility] Rx#:[id number] Oral 240 / 240 Other: # Voids 2 5 2 # Bowel Movements 0 Result Diagrams: 01/21/18 04:04 01/21/18 04:04 Imaging: Impressions Head MRI 01/20/18 00:00 CONCLUSION: 1. Multiple areas of subarachnoid hemorrhage and punctate intraparenchymal contusions bilaterally and possibility of additional shear axonal injury should also be entertained. 2. No extra-axial fluid collections or mass effect. Disinhibition Score: 17.50 Aggression Score: 14.00 Lability Score: 14.00 Agitated Behavior Total Score: 16
[2018-01-21] MEDS: Multivitamin Inj 10 ML, Thiamine Inj 100 MG, Folic Acid Inj 1 MG in Sodium Chlor 0.9% I... IV.SIG SCH (16:17)
[2018-01-21] MEDS: Pantoprazole Inj 40 MG Vial IV.PUSH SCH (16:17)
[2018-01-21] MEDS ORDERED: Haloperidol Inj 5 MG/ML Ampul IM PRN (16:24)
--- NOTE | 2018-01-21 17:15 | P.PNNS ---
Subjective Interval history: Pt somnolent but is responding verbally more when asked to do so. She denies headache or pain anywhere verbally. She answers she is in a hospital. <Lance Gustafson - Last Filed: 01/21/18 17:05> Physical Exam Vital signs: Vital Signs 01/20/18 20:00 01/20/18 20:01 01/21/18 00:00 Temperature 99.6 F 98.8 F Pulse Rate 97 H 69 Respiratory Rate 12 23 Blood Pressure 111/73 111/73 Pulse Oximetry 100 100 100 01/21/18 04:00 01/21/18 07:32 01/21/18 08:00 Temperature 98.8 F 98.3 F Pulse Rate 73 69 Respiratory Rate 18 19 Blood Pressure 106/60 106/73 Pulse Oximetry 100 99 100 01/21/18 12:00 01/21/18 16:00 Temperature 97.7 F 98.6 F Pulse Rate 75 88 Respiratory Rate 22 17 Blood Pressure 110/67 106/64 Pulse Oximetry 100 100 Intake & Output 01/20/18 01/21/18 01/21/18 18:59 06:59 18:59 Intake Total 1240 / 1240 511.2 / 511.2 Balance 1240 / 1240 511.2 / 511.2 Weight 54.7 kg Intake: IV 1000 / 1000 511.2 / 511.2 NS Inj 1,000 ML @ 100 mls/hr IV 1000 / 1000 .CONT .Q10H KALLIE Rx#:[id number] MVI-12 Inj 10 ML Thiamine Inj 511.2 / 511.2 100 MG Folvite Inj 1 MG In NS Inj 500 ML @ 125 mls/hr IV.SIG Q24H KALLIE Rx#:[id number] Oral 240 / 240 Other: # Voids 2 5 2 # Bowel Movements 0 - Constitutional no acute distress, average body habitus, cooperative, somnolent - Routine HEENT Exam Head: Absent: normocephalic, atraumatic (Left periorbital ecchymosis and mild edema.) Eye: Present: PERRL (Pupils 3mm bialterally reactive bilaterally.). Absent: conjunctival icterus ENT: Present: oropharynx clear - Routine Neck Exam Present: trachea midline - Routine Respiratory Exam Present: CTA bilaterally. Absent: respiratory distress, rhonchi, wheezes - Routine Cardiovascular Exam Present: RRR, S1, S2. Absent: murmur - Routine Abdominal Exam Present: soft, normoactive bowel sounds. Absent: tenderness, distended, firm - Routine Extremities Exam Absent: cyanosis - Routine Skin Exam Absent: cyanosis, erythema - Routine Neurological Exam Present: altered mental status. Absent: alert (somnolent.), motor deficit, normal speech (Starting to answer some questions but requires prompting to speak.) - Detailed Neurological Exam: Coma Scale Eye Opening: Spontaneous Verbal Response: Words Motor Response: Obey commands Manjinder Coma Scale Total: 13 - Routine Psychiatric Exam Present: cooperative. Absent: normal affect, agitated <Lance Gustafson - Last Filed: 01/21/18 17:05> Vital signs: Vital Signs 01/20/18 20:00 01/20/18 20:01 01/21/18 00:00 Temperature 99.6 F 98.8 F Pulse Rate 97 H 69 Respiratory Rate 12 23 Blood Pressure 111/73 111/73 Pulse Oximetry 100 100 100 01/21/18 04:00 01/21/18 07:32 01/21/18 08:00 Temperature 98.8 F 98.3 F Pulse Rate 73 69 Respiratory Rate 18 19 Blood Pressure 106/60 106/73 Pulse Oximetry 100 99 100 01/21/18 12:00 01/21/18 16:00 Temperature 97.7 F 98.6 F Pulse Rate 75 88 Respiratory Rate 22 17 Blood Pressure 110/67 106/64 Pulse Oximetry 100 100 Intake & Output 01/20/18 01/21/18 01/21/18 18:59 06:59 18:59 Intake Total 1240 / 1240 511.2 / 511.2 Balance 1240 / 1240 511.2 / 511.2 Weight 54.7 kg Intake: IV 1000 / 1000 511.2 / 511.2 NS Inj 1,000 ML @ 100 mls/hr IV 1000 / 1000 .CONT .Q10H KALLIE Rx#:[id number] MVI-12 Inj 10 ML Thiamine Inj 511.2 / 511.2 100 MG Folvite Inj 1 MG In NS Inj 500 ML @ 125 mls/hr IV.SIG Q24H KALLIE Rx#:[id number] Oral 240 / 240 Other: # Voids 2 5 2 # Bowel Movements 0 <Virgilio Caruso - Last Filed: 01/21/18 18:09> Assessment and Plan - Assessment (1) Altered mental status Code(s): R41.82 - Altered mental status, unspecified Status: Acute Qualifiers: Altered mental status type: transient alteration of awareness Qualified Code(s): R40.4 - Transient alteration of awareness (2) Subarachnoid hemorrhage Code(s): I60.9 - Nontraumatic subarachnoid hemorrhage, unspecified Status: Acute (3) Sepsis Code(s): A41.9 - Sepsis, unspecified organism Status: Acute - Plan CT head: -left frontal/temporal scalp hematoma without underlying skull fracture -Small areas of right frontal tSAH -5 mm small nodule of hyperintensity within the right caudal cerebral peduncle ( differential includes small contusion from JUSTINE, incidental finding) A/P: [age]ish yo F found down with small areas of traumatic SAH and possible punctate hemorrhage within the right caudal cerebral peduncle. -No surgical intervention indicated. Continue with Neuro checks. -Patients current state not explained by current CT head findings, recommend further medical workup of AMS including infectious (WBC 20), utox, etc. -Continue with PT <Lance Gustafson - Last Filed: 01/21/18 17:05> - Attending Attestation The exam, history, and the medical decision-making described in the above note were completed with the assistance of the mid-level provider. I reviewed and agree with the findings presented. I attest that I had a [id number] encounter with the patient on the same day, and personally performed and documented my assessment and findings in the medical record. MRI scan of the brain consistent with the small areas of contusions from head injury. Continue with supportive care and rehabilitation. <Virgilio Caruso - Last Filed: 01/21/18 18:09> Radiology Note Impressions Head MRI 01/20/18 00:00 CONCLUSION: 1. Multiple areas of subarachnoid hemorrhage and punctate intraparenchymal contusions bilaterally and possibility of additional shear axonal injury should also be entertained. 2. No extra-axial fluid collections or mass effect. <Virgilio Caruso - Last Filed: 01/21/18 18:09>
--- NOTE | 2018-01-21 17:24 | P.CONREH ---
History of Present Illness Service: Physical medicine rehabilitation Consult date: 01/21/18 Reason for Consult: Comprehensive rehabilitation evaluation Primary Care Provider: UNKNOWN History of Present Illness: Paola Yap is a 32-year-old female admitted to [facility] 01/19/18 after found down on the ground with bruising in the left temporal area. Tox screen was positive for cocaine and cannabinoid. Head CT showed: Left scalp soft tissue swelling and subcutaneous edema. No skull fracture. 5 mm high density focus in the medial right temporal lobe likely representing a focal area of blood products, possibly a small hemorrhagic contusion.Questionable subtle subarachnoid blood products layering along the right frontal sulci. Brain MRI 01/20/18 showed: multiple areas of subarachnoid hemorrhage and punctate intraparenchymal contusions bilaterally and possibility of additional shear axonal injury to be considered. Review of Systems other (Limited due to impaired cognition) Constitutional: Denies headache(s) Eyes: Denies double vision Ears, Nose, Mouth, and Throat: Denies headache(s) Cardiovascular: Denies chest pain Respiratory: Denies shortness of breath Gastrointestinal: Denies abdominal pain PMFSH - History History Provided By: Patient - Medical / Surgical Hx Neg / Unobtainable Medical Problems Denied: Unable to Obtain Surgical History: Unable to Obtain - Medical History Medical History: Medical History (Last Updated 01/21/18 @ 19:57 by Deedee Ahmadi RN) Head injury - Tobacco History Second Hand Smoke Exposure: (pt will not answer) Smoking Status: Refused to answer - Alcohol History How Often Do You Have a Drink Containing Alcohol: Unable to Obtain - Substance Use History Substance History: Active Abuse - Travel History Recent Travel in the [place] Within the Last 8 Weeks: No Recent Travel Out of the Country Within the Last 8 Weeks: No - Immunization History Tetanus Immunization: Unable to Assess Hx Influenza Vaccine This Season: Unable to Assess Medications and Allergies Active Medications: Active Medications Bacitracin (Baciguent Oint) 1 applicatio TOPICAL BID KALLIE Last Admin: 01/21/18 08:14 Dose: 1 applicatio Chlorhexidine Gluconate (Chlorhexidine 2% Cloth) 3 pack TOPICAL DAILY@0400 KALLIE Stop: 01/25/18 03:59 Last Admin: 01/21/18 05:00 Dose: 3 pack Chlorhexidine Gluconate (Chlorhexidine 2% Cloth) 3 pack TOPICAL DAILY@0400 PRN PRN Reason: Extra cloth needed Stop: 01/25/18 03:59 Docusate Sodium (Colace) 100 mg PO BID [facility] Last Admin: 01/21/18 08:14 Dose: 100 mg Enalaprilat (Vasotec Inj) 1.25 mg IV.PUSH Q8H PRN PRN Reason: Blood pressure 180/95 Haloperidol Lactate (Haldol Inj) 4 mg IM Q6H PRN PRN Reason: AGITATION Multivitamins 10 ml/ Thiamine HCl 100 mg/ Folic Acid 1 mg/Sodium Chloride 511.2 mls @ 125 mls/hr IV.SIG Q24H [facility] Stop: 01/21/18 19:06 Last Admin: 01/21/18 16:17 Dose: Not Given Acetaminophen (Ofirmev Inj) 1,000 mg in 100 mls @ 400 mls/hr IV.SIG Q6H PRN PRN Reason: PAIN SCALE 1 TO 10 Ondansetron HCl (Zofran Inj) 4 mg IV.PUSH Q6H PRN PRN Reason: NAUSEA OR VOMITING Pantoprazole Sodium (Protonix Inj) 40 mg IV.PUSH Q24H [facility] Last Admin: 01/21/18 16:17 Dose: Not Given Quetiapine Fumarate (Seroquel) 50 mg PO BID [facility] Last Admin: 01/21/18 12:17 Dose: Not Given Sodium Chloride (Ns Flush) 2 ml IV.FLUSH PRN PRN PRN Reason: FLUSH AFTER USING IV ACCESS Last Admin: 01/19/18 08:29 Dose: 2 ml Sodium Chloride (Ns Flush) 2 ml IV.FLUSH UNSCH PRN PRN Reason: FLUSH AFTER USING IV ACCESS Allergies Allergy/AdvReac Type Severity Reaction Status Date / Time No Known Allergies Allergy Verified 01/21/18 19:54 Home Medications Medication Instructions Recorded Confirmed Type Unable to Obtain Home Meds 01/19/18 01/19/18 History Exam - Physical Examination Vital Signs / I&O: Vital Signs 01/20/18 20:00 01/20/18 20:01 01/21/18 00:00 Temperature 99.6 F 98.8 F Pulse Rate 97 H 69 Respiratory Rate 12 23 Blood Pressure 111/73 111/73 Pulse Oximetry 100 100 100 01/21/18 04:00 01/21/18 07:32 01/21/18 08:00 Temperature 98.8 F 98.3 F Pulse Rate 73 69 Respiratory Rate 18 19 Blood Pressure 106/60 106/73 Pulse Oximetry 100 99 100 01/21/18 12:00 01/21/18 16:00 Temperature 97.7 F 98.6 F Pulse Rate 75 88 Respiratory Rate 22 17 Blood Pressure 110/67 106/64 Pulse Oximetry 100 100 Intake & Output 01/20/18 01/21/18 01/21/18 18:59 06:59 18:59 Intake Total 1240 / 1240 511.2 / 511.2 Balance 1240 / 1240 511.2 / 511.2 Weight 54.7 kg Intake: IV 1000 / 1000 511.2 / 511.2 NS Inj 1,000 ML @ 100 mls/hr IV 1000 / 1000 .CONT .Q10H KALLIE Rx#:[id number] MVI-12 Inj 10 ML Thiamine Inj 511.2 / 511.2 100 MG Folvite Inj 1 MG In NS Inj 500 ML @ 125 mls/hr IV.SIG Q24H KALLIE Rx#:[id number] Oral 240 / 240 Other: # Voids 2 5 2 # Bowel Movements 0 Intake & Output 01/19/18 01/20/18 01/21/18 01/22/18 06:59 06:59 06:59 06:59 Intake Total 1561.2 / 1561.2 1751.2 / 1751.2 Balance 1561.2 / 1561.2 1751.2 / 1751.2 Weight 52.1 kg 54.7 kg General: No acute distress, Other (Awake and alert; sitting comfortably in bed) Respiratory: Lungs CTA, Non-labored respirations, BS equal Gastrointestinal: Positive bowel sounds, Non-distended, Non-tender Cardiovascular: Normal rate, Regular rhythm Psychiatric: Cooperative - Neurologic Orientation: oriented to: Self, Place, Situation, disoriented to: Time (Year intact but not month) Neurologic: Pupils (PERRLA), EOM (Intact) Motor: Right Upper Extremity (5/5), Left Upper Extremity (5/5), Right Lower Extremity (5/5), Left Lower Extremity (5/5) Sensory: Intact DTRs: Normal Clonus: Negative Results - Labs CBC & Chem 7: 01/21/18 04:04 01/21/18 04:04 Labs: Laboratory Results - last 24 hr 01/21/18 01/21/18 04:04 04:04 WBC 12.1 H RBC 3.88 L Hgb 11.8 Hct 35.7 MCV 92.0 MCH 30.5 MCHC 33.2 RDW 13.8 Plt Count 261 MPV 8.7 Neut % (Auto) 61.1 Lymph % (Auto) 29.9 [place] % (Auto) 7.7 Eos % (Auto) 0.9 Baso % (Auto) 0.4 Neut # (Auto) 7.4 Lymph # (Auto) 3.6 [place] # (Auto) 0.9 Eos # (Auto) 0.1 Baso # (Auto) 0.1 WBC Differential . Differential Comment Auto diff final Sodium 142 Potassium 3.6 Chloride 108 H Carbon Dioxide 24.2 Anion Gap 10 BUN 8 Creatinine 0.62 Estimated GFR Greater than 89 Random Glucose 85 Calcium 8.5 Assessment and Plan (1) Closed head injury Status: Acute Code(s): S09.90XA - Unspecified injury of head, initial encounter (2) Intraparenchymal hemorrhage of brain Status: Acute Code(s): I61.9 - Nontraumatic intracerebral hemorrhage, unspecified (3) Subarachnoid hemorrhage Status: Acute Code(s): I60.9 - Nontraumatic subarachnoid hemorrhage, unspecified - Plan Assessment: 1. Closed head injury including: Multiple areas of subarachnoid hemorrhage/ punctate intraparenchymal contusions bilaterally with possible shear injury. Now [place]o level 5 Recommendations: 1. PT to mobilize patient anticipating that she will progress well with gait and balance 2. ST addressing cognition 3. Appreciate Neuropsychology consult. Patient now Rancho 5-6 4. Case management addressing discharge planning and attempting to contact family. Do not anticipate that patient will need inpatient rehab but possible outpatient ST. Will follow regrading rehab needs at discharge and followup in clinic Thanks for this consult. (1) Closed head injury Qualifiers: Encounter type: initial encounter Qualified Code(s): S09.90XA - Unspecified injury of head, initial encounter
--- NOTE | 2018-01-27 13:08 | P.DS ---
Date of admission: 01/19/18 12:05 Primary care physician: UNKNOWN Brief History from admission: Found down, unk mechanism DS: Diagnosis - Discharge Diagnosis (1) Subarachnoid hemorrhage Status: Acute (2) Intraparenchymal hemorrhage of brain Status: Acute DS: Summary Hospital Course: 01/20/2018 Patient has been neurologically same since the arrival She is arousable and when awake somewhat somnolent answering simple questions appropriately and then falling asleep Able to eat her lunch today by herself Refuses to answer any questions other than her name and the adverse and does not remember any events surrounding her injury Patient was positive for substances Wells Coma Scale around 11-12 and when patient is fully awake about 13-14 Motorically fully intact no lateralization Hemodynamically patient is stable Bilateral good breath sounds good pulmonary function and patient might have aspirated and seen both within know that yet If any pulmonary infiltrates occur it will be next 24-48 hours Abdomen soft no signs of trauma Extremities with good proximal distal pulses no signs of trauma Renal function preserved As above noted MRI reveals full extent of her injuries which does not include only frontal and parietal areas but also the basal ganglia and jonatan 01/21/2018 Patient is awake and alert oriented 3 Motorically fully intact MRI shows fairly extensive diffuse injuries throughout the brain mainly in frontal and temporoparietal areas but also some of the base of the brain in the form of her shear injury. Patient extremely belligerent to the staff cussing and threatening Hemodynamically stable Bilateral good breath sounds good pulmonary function Out of bed regular diet Patient awaiting floor bed for the last 24 hours Patient wanted to leave today despite discussion that she should stay in the hospital and be observed for another day or so due to her head injury. No psych admit warranted per Dr Corona. Patient A&O x 3 and signed out AMA. - Time Spent with Patient Total time spent providing and/or coordinating discharge services: Greater than 30 minutes - Quality: VTE Deep Vein Thrombosis/Pulmonary Embolism Present on Admission: No Results Procedures completed during hospitalization: NA - Impressions ITS Impressions Chest X-Ray 01/19/18 08:22 CONCLUSION: No acute cardiopulmonary disease. Head CT 01/19/18 08:22 CONCLUSION: 1. Left scalp soft tissue swelling and subcutaneous edema. No skull fracture is identified. 2. 5 mm high density focus in the medial right temporal lobe likely representing a focal area of blood products, possibly a small hemorrhagic contusion. There are questionable subtle subarachnoid blood products layering along the right frontal sulci. . Head MRI 01/20/18 00:00 CONCLUSION: 1. Multiple areas of subarachnoid hemorrhage and punctate intraparenchymal contusions bilaterally and possibility of additional shear axonal injury should also be entertained. 2. No extra-axial fluid collections or mass effect. Discharge Plan - Discharge Disposition Patient Disposition: Left Against Medical Advice - Discharge Condition Condition: Critical - Discharge Details Anticipated Discharge Date: 01/19/18 - Physicians Team Primary Care Provider: UNKNOWN, Attending Provider: Wilfrid Velasquez Other Providers: Kyaw Lewis MD ; Chinmay Avina MD ; Systems, [employer] Tra[employer] ; Davy Muller MD ; Suki Maier ARNP ; Isaías Cool MD ; Rochelle Mendez MD ; Torito Belle ARNP ; Wilfrid Velasquez MD ; Luke Wagner MD ; Franklin Mcarthur, PhD ; Gilberto Martinez MD ; Dalia Foster MD
== END 2018-01-21 18:10 | disposition left against medical advice (07) ==
LOC: NEPE 08:06 → EDBD 12:05 → NEDA 12:05 → N03 15:15
PROVIDERS: ADMIT Surgery; ATTEND Surgery